=== PATIENT | female | born 1990 | race African-American/Black ===

== ENCOUNTER 2017-08-13 22:34 | Emergency (ER) | payer SELFPAY ==
--- NOTE | 2017-08-13 23:57 | EDPHYS ---
Physician Documentation [facility] Name: Vannesa Marin Age: 27 yrs Sex: Female : 1990 Arrival Date: 08/13/2017 Time: 22:35 Bed 26 Private MD: ED Physician Ralph Kelley HPI: 08/13 23:43 This 27 yrs old Black Female presents to ER via Ambulatory with complaints of Flu duane Symptoms. 23:43 The patient or guardian reports cough. Onset: The symptoms/episode began/occurred 2 duane day(s) ago. 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 - Social history:: Smoking status: unknown. - Ebola Screening: : Patient negative for fever greater than or equal to 101.5 degrees Fahrenheit, and additional compatible Ebola Virus Disease symptoms Patient denies exposure to infectious person Patient denies travel to an Ebola-affected area in the 21 days before illness onset No symptoms or risks identified at this time. ROS: 23:44 Constitutional: Negative for fever, chills, and weight loss, Eyes: Negative for injury, duane pain, redness, and discharge, Neck: Negative for injury, pain, and swelling, Cardiovascular: Negative for chest pain, palpitations, and edema, Respiratory: Negative for shortness of breath, cough, wheezing, and pleuritic chest pain, Abdomen/GI: Negative for abdominal pain, nausea, vomiting, diarrhea, and constipation, Back: Negative for injury and pain, : Negative for injury, bleeding, discharge, and swelling, MS/Extremity: Negative for injury and deformity, Skin: Negative for injury, rash, and discoloration, Neuro: Negative for headache, weakness, numbness, tingling, and seizure, Psych: Negative for depression, anxiety, suicide ideation, homicidal ideation, and hallucinations, Allergy/Immunology: Negative for hives, rash, and allergies, Endocrine: Negative for neck swelling, polydipsia, polyuria, polyphagia, and marked weight changes, Hematologic/Lymphatic: Negative for swollen nodes, abnormal bleeding, and unusual bruising. 23:44 ENT: Positive for sore throat. Exam: 23:44 Constitutional: This is a well developed, well nourished patient who is awake, alert, duane and in no acute distress. Head/Face: Normocephalic, atraumatic. Eyes: Pupils equal round and reactive to light, extra-ocular motions intact. Lids and lashes normal. Conjunctiva and sclera are non-icteric and not injected. Cornea within normal limits. Periorbital areas with no swelling, redness, or edema. ENT: Nares patent. No nasal discharge, no septal abnormalities noted. Tympanic membranes are normal and external auditory canals are clear. Oropharynx with no redness, swelling, or masses, exudates, or evidence of obstruction, uvula midline. Mucous membranes moist. Neck: Trachea midline, no thyromegaly or masses palpated, and no cervical lymphadenopathy. Supple, full range of motion without nuchal rigidity, or vertebral point tenderness. No Meningismus. Chest/axilla: Normal chest wall appearance and motion. Nontender with no deformity. No lesions are appreciated. Cardiovascular: Regular rate and rhythm with a normal S1 and S2. No gallops, murmurs, or rubs. Normal PMI, no JVD. No pulse deficits. Respiratory: Lungs have equal breath sounds bilaterally, clear to auscultation and percussion. No rales, rhonchi or wheezes noted. No increased work of breathing, no retractions or nasal flaring. Abdomen/GI: Soft, non-tender, with normal bowel sounds. No distension or tympany. No guarding or rebound. No evidence of tenderness throughout. Back: No spinal tenderness. No costovertebral tenderness. Full range of motion. Skin: Warm, dry with normal turgor. Normal color with no rashes, no lesions, and no evidence of cellulitis. MS/ Extremity: Pulses equal, no cyanosis. Neurovascular intact. Full, normal range of motion. Neuro: Awake and alert, GCS 15, oriented to person, place, time, and situation. Cranial nerves II-XII grossly intact. Motor strength 5/5 in all extremities. Sensory grossly intact. Cerebellar exam normal. Normal gait. Psych: Awake, alert, with orientation to person, place and time. Behavior, mood, and affect are within normal limits. Vital Signs: 23:07 BP 100 / 59; Pulse 56; Resp 14; Temp 97.6; Pulse Ox 100% ; Weight 58.06 kg; Height 5 bp ft. 2 in. (157.48 cm); 23:07 Body Mass Index 23.41 (58.06 kg, 157.48 cm) bp MDM: 23:33 Patient medically screened. [facility] 23:44 Data reviewed: vital signs, nurses notes, lab test result(s), urinalysis. [facility] 08/14 00:04 Order name: Urine Dipstick--Ancillary (enter results) 08/14 00:04 Order name: Urine --Ancillary (enter results) 08/13 23:43 Order name: Urine Dipstick-Ancillary (obtain specimen); Complete Time: 23:59 [facility] 08/13 23:43 Order name: Urine Test (obtain specimen); Complete Time: 23:59 [facility] Administered Medications: 08/14 00:17 Drug: AZITHromycin 500 mg Route: PO; 00:17 Follow up: Response: No adverse reaction Disposition: 08/13/17 23:56 Discharged to Home. Impression: Acute upper respiratory infection, unspecified. - Condition is Stable. - Discharge Instructions: Upper Respiratory Infection, Adult, Cool Mist Vaporizers, Cough, Adult. - Prescriptions for Zithromax Z- Robert 250 mg Oral Tablet - take 1 tablet by ORAL route as directed for 5 days Day 1 - take two (2) tablets one time. Day 2, 3, 4 , 5 take one (1) tablet once daily.; 6 tablet. - Medication Reconciliation Form, Thank You Letter, Antibiotic Education, Prescription Opioid Use form. - Follow up: Private Physician; When: 2 - 3 days; Reason: Recheck today's complaints, Continuance of care, Re-evaluation by your physician. - Problem is new. - Symptoms have improved. Signatures: Dispatcher [employer] EDMS Ralph Kelley MD MD cha Habalo, Winsy wh Peltier, Brian, RN RN bp Corrections: (The following items were deleted from the chart) 00:18 08/13 23:56 08/13/2017 23:56 Discharged to Home. Impression: Acute upper respiratory wh infection, unspecified. Condition is Stable. Discharge Instructions: Upper Respiratory Infection, Adult, Cool Mist Vaporizers, Cough, Adult. Prescriptions for Zithromax Z-Robert 250 mg Oral Tablet - take 1 tablet by ORAL route as directed for 5 days Day 1 - take two (2) tablets one time. Day 2, 3, 4 , 5 take one (1) tablet once daily.; 6 tablet. and Forms are Medication Reconciliation Form, Thank You Letter, Antibiotic Education, Prescription Opioid Use. Follow up: Private Physician; When: 2 - 3 days; Reason: Recheck today's complaints, Continuance of care, Re-evaluation by your physician. Problem is new. Symptoms have improved. duane
--- NOTE | 2017-08-13 23:57 | ER ---
Nurse's Notes [facility] Name: Vannesa Marin Age: 27 yrs Sex: Female : 1990 Arrival Date: 08/13/2017 Time: 22:35 Bed 26 Private MD: Diagnosis: Acute upper respiratory infection, unspecified Presentation: 08/13 23:06 Presenting complaint: Patient states: I THINK THE MOSQUITOES ATE ME UP CAUSE I STAY IN bp THE BURCH AND NOW MY HEAD BE HURTING. Transition of care: patient was not received from another setting of care. Onset of symptoms is unknown. Risk Assessment: Do you want to hurt yourself or someone else? Patient reports no desire to harm self or others. Initial Sepsis Screen: Does the patient meet any 2 criteria? No. Patient's initial sepsis screen is negative. Does the patient have a suspected source of infection? No. Patient's initial sepsis screen is negative. Care prior to arrival: None. 23:06 Method Of Arrival: Ambulatory bp 23:06 Acuity: ALEENA 4 bp Triage Assessment: 23:07 General: Appears in no apparent distress. comfortable, Behavior is calm, cooperative, bp appropriate for age. Pain: Complains of pain in head. 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 - Social history:: Smoking status: unknown. - Ebola Screening: : Patient negative for fever greater than or equal to 101.5 degrees Fahrenheit, and additional compatible Ebola Virus Disease symptoms Patient denies exposure to infectious person Patient denies travel to an Ebola-affected area in the 21 days before illness onset No symptoms or risks identified at this time. Screenin/01 00:06 Abuse screen: Denies threats or abuse. Denies injuries from another. Nutritional kr2 screening: No deficits noted. Tuberculosis screening: No symptoms or risk factors identified. Fall Risk None identified. Assessment: 08/13 23:30 General: Appears in no apparent distress. comfortable, well groomed, well developed, kr2 well nourished, Behavior is calm, cooperative, appropriate for age. Pain: Complains of pain in head Pain currently is 6 out of 10 on a pain scale. Quality of pain is described as aching, Is continuous, Alleviated by nothing. Neuro: Level of Consciousness is awake, alert, obeys commands, Oriented to person, place, time, situation, Appropriate for age. Cardiovascular: Capillary refill < 3 seconds in bilateral fingers Patient's skin is warm and dry. Respiratory: Airway is patent Respiratory effort is even, unlabored, Respiratory pattern is regular, symmetrical. GI: Abdomen is flat, non-distended, Abd is soft and non tender X 4 quads. : Denies burning with urination. EENT: Oral mucosa is moist. Derm: Skin is intact, is healthy with good turgor, Skin is pink, warm \T\ dry. Musculoskeletal: Circulation, motion, and sensation intact. Vital Signs: 23:07 BP 100 / 59; Pulse 56; Resp 14; Temp 97.6; Pulse Ox 100% ; Weight 58.06 kg; Height 5 bp ft. 2 in. (157.48 cm); 23:07 Body Mass Index 23.41 (58.06 kg, 157.48 cm) bp ED Course: 22:35 Patient arrived in ED. es 23:07 Triage completed. bp 23:07 Arm band placed on. bp 23:24 Lorna Patton, RN is Primary Nurse. kr2 23:30 Patient has correct armband on for positive identification. Bed in low position. Call kr2 light in reach. Side rails up X 1. Pulse ox on. NIBP on. Door closed. Verbal reassurance given. Head of bed elevated. 23:33 Ralph Kelley MD is Attending Physician. [facility] 08/14 00:17 No provider procedures requiring assistance completed. Patient did not have IV access during this emergency room visit. Administered Medications: 00:17 Drug: AZITHromycin 500 mg Route: PO; 00:17 Follow up: Response: No adverse reaction Outcome: 08/13 23:56 Discharge ordered by . [facility] 08/14 00:17 Discharged to home ambulatory, with family. Condition: good Discharge instructions given to patient, family, Instructed on discharge instructions, follow up and referral plans. medication usage, POC URTI Demonstrated understanding of instructions, follow-up care, medications, Prescriptions given X 1. 00:18 Patient left the ED. Signatures: Warren, Ralph, MD MD Yue Cavazos Winsy wh Peltier, Brian, RN RN bp Lorna Patton RN RN kr2
[2017-08-14 00:11] LABS: Urine Blood NEGATIVE (NEG); Urine Glucose NEGATIVE (NEG); Urine Protein NEGATIVE (NEG); Urine Specific Gravity 1.025 (1.005-1.030); Urine pH 6.5 (5.0-7.0)
[2017-08-14] MEDS ORDERED: AZITHROMYCIN 250 MG TAB ONE (00:11)
== END 2017-08-14 00:18 | disposition home or self-care (01) ==
LOC: ER 22:34
DX: J06.9 Acute upper respiratory infection, unspecified (principal); J45.909 Unspecified asthma, uncomplicated
CPT/HCPCS: 81003; 81025; 99283